=== PATIENT | female | born 1950 | race Caucasian/White ===

== ENCOUNTER → 2017-12-10 | Outpatient (CLI) | payer MEDICARE, BC ==
[~2017-12-10] MED LIST: ALBUTEROL2.5 MG/3 M INH; CLARITHROMYCIN500 MG PO; CLOPIDOGREL75 MG PO; CYCLOBENZAPRINE10 MG PO; DEXA; HYDROCHLOROTHIA50 MG PO; METOPROLOL TAR100 MG PO; PLAVIX75 MG PO; QNASL8.7 GM INH; TESSALON PERLE100 MG PO; Z.0.ALLEGRA60 MG PO; Z.0.DEXILANT60 MG; Z.0.PRINIVIL20 MG; Z.0.SINGULAIR10 MG PO; Z.0.TOPROL XL100 MG; Z.0.ZOLOFT25 MG; ZOLOFT50 MG PO
--- NOTE | 2017-12-10 14:25 | Diagnostic Imaging Report ---
EXAMINATION: PA and lateral views of the chest. COMPARISON: Chest 2 views 07/07/2012 CLINICAL HISTORY: Shortness of breath, tiredness, weakness DISCUSSION: Lines/tubes: None. Lungs: The lungs are well inflated. Stable 4-5 mm calcified granuloma in the left upper lobe. There is no evidence of pneumonia or pulmonary edema. Pleura: There is no pleural effusion or pneumothorax. Heart and mediastinum: Cardiomediastinal silhouette is unremarkable. Pulmonary vasculature is normal. Bones and soft tissues: No acute bony abnormalities. Degenerative changes in the thoracic spine IMPRESSION: No acute cardiopulmonary abnormalities. Signed by: Dr. Gary Caraballo M.D. on 12/10/2017 2:22 PM
== END ==
LOC: RAD 13:13
PROVIDERS: ATTEND Family Medicine
DX: R06.02 Shortness of breath (principal)
CPT/HCPCS: 71046

== ENCOUNTER 2018-10-16 19:13 | Emergency (ER) | payer MEDICARE, BC ==
[~2018-10-16] VITALS: Ht 172.7 cm; Wt 113.4 kg
[2018-10-16] MEDS ORDERED: TRAMADOL HCL 50 MG TAB PO ONE (19:15)
--- OUTSIDE RECORDS SUMMARY | 2018-10-16 19:17 | XMS REPORT ---
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 Allergies, Adverse Reactions, Alerts This patient has no known allergies or adverse reactions. Medications This patient has no known medications. Results Test Description Test Time Test Comments Text Results Atomic Results Result Comments CHEST 2 VIEWS 2017-12-10 14:20:00 [place] [id number] Patient Name: CHAVA LUDWIG MR #: [id number] : 1950 Age/Sex: 67/F Req #: [id number] Adm Physician: Ordered by: RAJENDRA BOO MD Report #: [id number] Location: [facility] Room/Bed: Procedure: [id number] DX/CHEST 2 VIEWS Exam Date: 12/10/17 Exam Time: 1355 REPORT STATUS: Signed EXAMINATION: PA and lateral views of the chest. COMPARISON: Chest 2 views 07/07/2012 CLINICAL HISTORY: Shortness of breath, tiredness, weakness DISCUSSION: Lines/tubes: None. Lungs: The lungs are well inflated. Stable 4-5 mm calcified granuloma in the left upper lobe. There is no evidence of pneumonia or pulmonary edema. Pleura: There is no pleural effusion or pneumothorax. Heart and mediastinum: Cardiomediastinal silhouette is unremarkable. Pulmonary vasculature is normal. Bones and soft tissues: No acute bony abnormalities. Degenerative changes in the thoracic spine IMPRESSION: No acute cardiopulmonary abnormalities. Signed by: Dr. Melissa Johnson M.D. on 12/10/2017 2:22 PM Dictated By: MELISSA JOHNSON MD [id number] Transcribed By: PONCHO on 12/10/17 142 COPY TO: RAJENDRA BOO MD
--- OUTSIDE RECORDS SUMMARY | 2018-10-16 19:17 | XMS REPORT | Clinical Summary ---
Author Author [facility] Address Unknown Phone Unavailable Care Team Providers Care Helicopter Pilot Name Role Phone Bharat Meza MD PCP Allergies Comments Active Allergy Reactions Severity Noted Date Out of it Zolpidem Other (See 10/07/2016 Comments) Hallucinations Codeine Other (See 10/07/2016 Comments) Levofloxacin Swelling 10/07/2016 Hallucinations Morphine Other (See 10/07/2016 Comments) Medications End Date Status Medication Sig Dispensed Refills Start Date Active spironolactone 0 (ALDACTONE) 50 MG tablet 7 Active sertraline (ZOLOFT) 50 MG 0 tablet 7 Active montelukast (SINGULAIR) 0 10 mg tablet 7 Active CLOPIDOGREL BISULFATE Take by 0 (PLAVIX ORAL) mouth. Active LOSARTAN POTASSIUM Take by 0 (LOSARTAN ORAL) mouth. Active Problems No known active problems Social History Date Tobacco Use Types Packs/Day Years Used Never Smoker Smokeless Tobacco: Never Used Alcohol Use Drinks/Week oz/Week Comments No Sex Assigned at Date Recorded Not on file Industry Job Start Date Occupation Not on file Not on file Not on file Travel End Travel History Travel Start No recent travel history available. Last Filed Vital Signs Not on file Plan of Treatment Health Maintenance Due Date Last Done Comments BREAST CANCER SCREENING 2001 COLONOSCOPY SCREENING 2001 SHINGLES VACCINES (#1) 2001 65+ PNEUMOCOCCAL VACCINE 01/05/2016 (1 of 2 - PCV13) INFLUENZA VACCINE 11/03/2018 Results Not on fileafter 10/15/2017 Insurance Type Payer Benefit Subscriber ID Effective Phone Address Plan / Dates Group Medicare MEDICARE MEDICARE xxxxxxxxxx 2016- JUSTIN, PART A AND Present [place] PPO BCBS BCBS xxxxxxxxxxxxxxx 2016- CHOICE Present PPO/KARMEN VELOZ PPO Advance Directives Patient has advance care planning documents on file. For more information, pierre gaytan contact: Justin Zamora [address] [place] [address]
--- NOTE | 2018-10-16 20:57 | Diagnostic Imaging Report ---
Right rib radiographs 7 views with PA chest radiograph HISTORY: Pain. COMPARISON: Chest radiograph 12/10/2017. FINDINGS: RIGHT RIBS: No displaced fracture. The osseous alignment is within normal limits. The joint spaces are well-maintained. The soft tissues appear unremarkable. Degenerative changes in the spine. Tendon anchor in the right humeral head. Aortic arch calcifications. Stable calcified granuloma in the left upper lobe. IMPRESSION: No displaced rib fractures. Degenerative changes in the spine. Signed by: Caesar Kevin DO on 10/16/2018 8:54 PM
--- NOTE | 2018-10-16 20:59 | Diagnostic Imaging Report ---
KNEE RIGHT THREE VIEWS HISTORY: Pain. COMPARISON: None available. FINDINGS: Bones: No acute displaced fracture. Osseous alignment is within normal limits. Joints: Tricompartmental joint space narrowing and osteophytes. Soft tissues: Mild soft tissue swelling about the knee. IMPRESSION: No acute radiographic osseous abnormality. Mild soft tissue swelling about the knee. Advanced degenerative changes in the knee. Signed by: Caesar Keivn DO on 10/16/2018 8:56 PM
[2018-10-16 21:11] VITALS: BP 133/64
== END 2018-10-16 21:16 | disposition home or self-care (01) ==
LOC: ER 19:13
DX: S80.01XA Contusion of right knee, initial encounter (principal); W01.0XXA Fall on same level from slipping, tripping and stumbling without subsequent striking against object, initial encounter; Y92.008 Other place in unspecified non-institutional (private) residence as the place of occurrence of the external cause; Z98.84 Bariatric surgery status
CPT/HCPCS: 71101; 99283

== ENCOUNTER → 2018-11-07 | Outpatient (CLI) | payer MEDICARE, BC ==
--- NOTE | 2018-11-07 15:43 | Diagnostic Imaging Report ---
EXAMINATION: CHEST 2 VIEWS INDICATION: Shortness of breath COMPARISON: Rib and chest radiograph of 10/16/2018, chest radiograph of 12/10/2017 FINDINGS: LINES/TUBES:None LUNGS:The lungs are well-inflated. No focal consolidation or pulmonary edema. Left upper lung calcified granuloma. PLEURA:No pleural effusion or pneumothorax. MEDIASTINUM:The cardiomediastinal silhouette appears normal in size and shape. Atherosclerotic calcifications of the thoracic aorta. BONES/SOFT TISSUES:No acute osseous injury. Degenerative changes of the visualized spine. ABDOMEN:No free air under the diaphragm. IMPRESSION: No focal pneumonia or pulmonary edema. Signed by: Dianna Simons MD on 11/07/2018 3:39 PM
== END ==
LOC: RAD 14:49
PROVIDERS: ATTEND Family Medicine
DX: R06.02 Shortness of breath (principal)
CPT/HCPCS: 71046

== ENCOUNTER → 2019-03-10 | Outpatient (CLI) | payer MEDICARE, BC ==
--- NOTE | 2019-03-10 13:58 | Diagnostic Imaging Report ---
Chest, PA and lateral. History: Bronchitis. Comparison: 11/07/2018. Discussion: The cardiomediastinal silhouette and pulmonary vasculature are within normal limits. A calcified granuloma is again identified in the left upper lobe The lungs are clear without evidence of consolidation or effusion. There are no acute osseous abnormalities. IMPRESSION: No radiographic evidence of acute cardiopulmonary abnormality. Signed by: Omero Huber MD on 03/10/2019 1:54 PM
== END ==
LOC: RAD 12:36
PROVIDERS: ATTEND Family Medicine
DX: J40 Bronchitis, not specified as acute or chronic (principal)
CPT/HCPCS: 71046

== ENCOUNTER → 2020-01-09 | Outpatient (CLI) | payer MEDICARE, BC ==
--- NOTE | 2020-01-09 11:12 | Diagnostic Imaging Report ---
EXAM: US ABDOMEN COMPLETE DATE: 01/09/2020 10:33 AM INDICATION: Abdominal pain COMPARISON: None TECHNIQUE: Transverse and longitudinal loja scale and color doppler sonographic images of the upper abdomen were obtained. FINDINGS: LIVER 16.5 cm in the right midclavicular line. Normal echogenicity of the liver with normal contour, no masses. SPLEEN 10.2 cm in maximum diameter. Normal echogenicity, no masses. GALLBLADDER Status post cholecystectomy. BILE DUCTS No intra nor extra-hepatic biliary dilation. Common bile duct measures 3mm PANCREAS: Visualized portions are normal. RIGHT KIDNEY: 9.0 cm Echogenicity: Normal Collecting System: No hydronephrosis Stones: None Cyst/Mass: None LEFT KIDNEY: 9.5 cm Echogenicity: Normal Collecting System: No hydronephrosis Stones: None Cyst/Mass: None VESSELS: Aorta: Visualized portions are within normal size limits Inferior Vena Cava: Visualized portions are normal Main Portal Vein: 0.8 cm, normal size with hepatopetal flow. FREE FLUID: None IMPRESSION: Unremarkable abdominal ultrasound. Signed by: Dianna Simons MD on 01/09/2020 11:09 AM
== END ==
LOC: US 10:01
PROVIDERS: ATTEND Family Medicine
DX: R14.0 Abdominal distension (gaseous) (principal); D73.4 Cyst of spleen
CPT/HCPCS: 76700

== ENCOUNTER → 2020-10-23 | Outpatient (CLI) | payer MEDICARE | LOC: MAMMO 13:08 | PROVIDERS: ATTEND Family Medicine | DX: Z12.31 Encounter for screening mammogram for malignant neoplasm of breast (principal) | CPT/HCPCS: 77067 ==

== ENCOUNTER 2020-11-14 12:09 | Emergency (ER) | payer MEDICARE, BC ==
[~2020-11-14] VITALS: Ht 167.6 cm; Wt 117.9 kg
[2020-11-14] MEDS ORDERED: ONDANSETRON HCL INJ 2MG/ML 2ML 2 MG/ML VIAL IV STA (13:03)
[2020-11-14] MEDS ORDERED: SODIUM CHLORIDE 0.9% 1000ML 1,000 ML IV SCH (13:15)
[2020-11-14] MEDS ORDERED: ONDANSETRON HCL INJ 2MG/ML 2ML 8 MG in SODIUM CHLORIDE 0.9% 50ML 50 ML IV ONE (13:30)
[2020-11-14] MEDS ORDERED: KETOROLAC TROMETHAMINE 30 MG/ML VIAL IV STA (13:44)
[2020-11-14] MEDS ORDERED: ONDANSETRON HCL INJ 2MG/ML 2ML 2 MG/ML VIAL ONE (13:52)
[2020-11-14] MEDS ORDERED: KETOROLAC TROMETHAMINE 30 MG/ML VIAL ONE (13:52)
[2020-11-14] MEDS ORDERED: SODIUM CHLORIDE 0.9% 1000ML 1,000 ML ONE (13:52)
[2020-11-14] MEDS ORDERED: LEVSIN-SL0.125 MG SL (16:46)
== END 2020-11-14 17:07 | disposition home or self-care (01) ==
LOC: FSED 12:53
DX: N39.0 Urinary tract infection, site not specified (principal); K59.00 Constipation, unspecified; I10 Essential (primary) hypertension; I65.29 Occlusion and stenosis of unspecified carotid artery
CPT/HCPCS: 74177; 80053; 81003; 82553; 84484; 85025; 99284; J1885; J2405; J7030

== ENCOUNTER → 2020-12-03 | Day surgery (SDC) | payer MEDICARE, BC ==
[2020-11-29 14:49] LABS: BASOPHILS # (AUTO) 0.1 (0.0-0.1); BASOPHILS % 0.7 % (0.0-1.0); EOSINOPHILS # (AUTO) 0.2 (0.0-0.4); EOSINOPHILS % 2.4 % (0.0-6.0); HEMATOCRIT 45.9 % (34.2-44.1); HEMOGLOBIN 14.6 g/dL (12.0-16.0); LYMPHOCYTES % 23.1 % (18.0-39.1); MEAN CORPUSCULAR HEMOGLOBIN 27.8 pg (28-32); MEAN CORPUSCULAR HGB CONC 31.8 g/dL (31-35); MEAN CORPUSCULAR VOLUME 87.4 fL (81-99); MONOCYTES # (AUTO) 0.6 (0.2-0.8); MONOCYTES % 6.5 % (4.4-11.3); NEUTROPHILS # (AUTO) 5.8 (2.1-6.9); NEUTROPHILS % 67.1 % (38.7-80.0); PLATELET COUNT 302 x10e3/uL (140-360); RED BLOOD COUNT 5.25 x10e6/uL (3.6-5.1); RED CELL DISTRIBUTION WIDTH 14.9 % (11.7-14.4)
[~2020-12-03] MED LIST changes: +BENICAR5 MG PO; +CARBINOXAMINE MA4 MG PO; +FLONASE ALLERG9.9 ML INH; +HYOSCYAMINE SULFATE 0.5 MG/ML INJ ONE; +LEVSIN-SL0.125 MG SL; +MUCINEX600 MG PO; +PROTONIX20 MG PO; +SPIRONOLACTONE25 MG PO; +VITAMIN B122500 MCG IM; +VITAMIN D350 MCG PO
[2020-12-03 14:11] VITALS: BP 136/67
== END | disposition home or self-care (01) ==
LOC: OR 10:25
PROVIDERS: ATTEND Internal Medicine Gastroenterology
DX: K20.90 Esophagitis, unspecified without bleeding (principal); K29.60 Other gastritis without bleeding; K95.89 Other complications of other bariatric procedure; Z98.84 Bariatric surgery status; Z98.0 Intestinal bypass and anastomosis status; K63.5 Polyp of colon; K57.30 Diverticulosis of large intestine without perforation or abscess without bleeding; K64.8 Other hemorrhoids; Z80.0 Family history of malignant neoplasm of digestive organs; E11.9 Type 2 diabetes mellitus without complications; D12.5 Benign neoplasm of sigmoid colon; Z86.010 Personal history of colon polyps; I10 Essential (primary) hypertension; Z68.41 Body mass index [BMI] 40.0-44.9, adult; Z88.1 Allergy status to other antibiotic agents; Z88.5 Allergy status to narcotic agent; Z88.8 Allergy status to other drugs, medicaments and biological substances; Z01.810 Encounter for preprocedural cardiovascular examination; Z01.812 Encounter for preprocedural laboratory examination; Z20.822 Contact with and (suspected) exposure to COVID-19
CPT/HCPCS: 36415 ×2; 43239; 43245; 45380; 45385; 82948; 85025; 88305; 88312; 93005; J1980; U0002

== ENCOUNTER 2022-06-08 11:22 | Emergency (ER) | payer MEDICARE, BC ==
[~2022-06-08] VITALS: Ht 167.6 cm; Wt 117.9 kg
[~2022-06-08 11:22] MED LIST changes: -HYOSCYAMINE SULFATE 0.5 MG/ML INJ ONE
[2022-06-08] MEDS ORDERED: FUROSEMIDE INJ 10 MG/ML 4 ML VIAL IV ONE (11:45)
[2022-06-08 11:59] LABS: BASOPHILS # (AUTO) 0.1 (0.0-0.1); BASOPHILS % 0.9 % (0.0-1.0); EOSINOPHILS # (AUTO) 0.2 (0.0-0.4); EOSINOPHILS % 3.3 % (0.0-6.0); HEMATOCRIT 43.9 % (34.2-44.1); HEMOGLOBIN 13.9 g/dL (12.0-16.0); LYMPHOCYTES # (AUTO) 1.7 (1.0-3.2); LYMPHOCYTES % 25.3 % (18.0-39.1); MEAN CORPUSCULAR HEMOGLOBIN 27.6 pg (28-32); MEAN CORPUSCULAR HGB CONC 31.7 g/dL (31-35); MEAN CORPUSCULAR VOLUME 87.3 fL (81-99); MONOCYTES # (AUTO) 0.5 (0.2-0.8); MONOCYTES % 6.9 % (4.4-11.3); NEUTROPHILS # (AUTO) 4.2 (2.1-6.9); NEUTROPHILS % 63.4 % (38.7-80.0); PLATELET COUNT 305 x10e3/uL (140-360); RED BLOOD COUNT 5.03 x10e6/uL (3.6-5.1); RED CELL DISTRIBUTION WIDTH 13.4 % (11.7-14.4)
[2022-06-08] MEDS ORDERED: ALBUTEROL/IPRATROPIUM 3 ML NEB NEB ONE (12:00)
[2022-06-08] MEDS ORDERED: METHYLPREDNISOLONE SOD SUCC 125 MG/2ML VIAL IV ONE (12:00)
[2022-06-08 12:11] LABS: ALBUMIN 3.3 g/dL (3.5-5.0); ALBUMIN/GLOBULIN RATIO 0.9 (0.8-2.0); ANION GAP 12.9 mmol/L (8-16); CALCIUM 9.5 mg/dL (8.4-10.2); CREATININE, SERUM 0.74 mg/dL (0.57-1.11); POTASSIUM 3.9 mmol/L (3.5-5.1)
[2022-06-08] MEDS ORDERED: ALBUTEROL2.5 MG/0.5 PO (13:36)
[2022-06-08] MEDS ORDERED: PREDNISONE50 MG PO (13:36)
[2022-06-08] MEDS ORDERED: BENZONATATE200 MG PO (13:36)
== END 2022-06-08 14:43 | disposition home or self-care (01) ==
LOC: ER 11:30
DX: R05.9 Cough, unspecified (principal); J40 Bronchitis, not specified as acute or chronic; I10 Essential (primary) hypertension; Z20.822 Contact with and (suspected) exposure to COVID-19; Z96.652 Presence of left artificial knee joint; Z98.84 Bariatric surgery status
CPT/HCPCS: 0223U; 36415; 71045; 80053; 83880; 84484; 85025; 93005; 94640; 94799; 99284; J2930

== ENCOUNTER → 2022-06-16 | Outpatient (CLI) | payer MEDICARE, BC ==
[~2022-06-16] MED LIST changes: +ALBUTEROL2.5 MG/0.5 PO; +BENZONATATE200 MG PO; +PREDNISONE50 MG PO
== END ==
LOC: RAD 12:00
PROVIDERS: ATTEND Family Medicine
DX: J40 Bronchitis, not specified as acute or chronic (principal)
CPT/HCPCS: 71046

== ENCOUNTER 2023-02-02 09:35 | Emergency (ER) | payer MEDICARE, BC ==
[~2023-02-02] VITALS: Ht 167.6 cm; Wt 117.9 kg
[2023-02-02 09:40] VITALS: O2SAT 97
[2023-02-02] MEDS ORDERED: OXYMETAZOLINE HCL 0.05% NAS 1 SPRAY BTL ONE (09:45)
== END 2023-02-02 11:04 | disposition home or self-care (01) ==
LOC: ER 09:40
DX: R04.0 Epistaxis (principal); I10 Essential (primary) hypertension; J45.909 Unspecified asthma, uncomplicated; Z98.84 Bariatric surgery status
CPT/HCPCS: 99284

== ENCOUNTER → 2024-10-04 | Day surgery (SDC) | payer MEDICARE, BC ==
[2024-09-25 12:02] LABS: BASOPHILS % 0.6 % (0.0-1.0); EOSINOPHILS % 4.2 % (0.0-6.0); LYMPHOCYTES % 23.6 % (18.0-39.1); MONOCYTES % 6.6 % (4.4-11.3); NEUTROPHILS % 64.9 % (38.7-80.0); RED CELL DISTRIBUTION WIDTH 14.6 % (11.7-14.4)
[~2024-10-04] MED LIST changes: +BIOTIN800 MCG; +EPHEDRINE SULFATE INJ 50 MG/ML VIAL ONE; +FENTANYL CITRATE/PF 100MCG/2 ML INJ ONE; +GLUCAGON FOR INJ 1 MG VIAL ONE; +HYOSCYAMINE SULFATE 0.5 MG/ML INJ ONE; +LIDOCAINE HCL 2% LOCAL INJ 5 ML SDV VIAL INJ ONE; +METOLAZONE5 MG PO; +ONDANSETRON HCL INJ 2MG/ML 2ML 2 MG/ML VIAL ONE; +PROPOFOL IV EMULSION 10 MG/ML 20 ML VIAL ONE; +PROPOFOL IV EMULSION 50 ML IV ONE
[2024-10-04] MEDS: LACTATED RINGER'S 1,000 ML ONE (07:06)
[2024-10-04 09:24] VITALS: TEMP 97.8
[2024-10-04] MEDS: ONDANSETRON HCL INJ 2MG/ML 2ML 2 MG/ML VIAL IV ONE ×2 (09:39→09:54)
[2024-10-04 09:52] VITALS: BP 119/43; PULSE 67; RESP 18; O2SAT 97
== END | disposition home or self-care (01) ==
LOC: OR 06:24
PROVIDERS: ATTEND Internal Medicine Gastroenterology
DX: Z12.11 Encounter for screening for malignant neoplasm of colon (principal); D12.0 Benign neoplasm of cecum; K29.50 Unspecified chronic gastritis without bleeding; K20.90 Esophagitis, unspecified without bleeding; K21.9 Gastro-esophageal reflux disease without esophagitis; K57.30 Diverticulosis of large intestine without perforation or abscess without bleeding; D64.9 Anemia, unspecified; I11.0 Hypertensive heart disease with heart failure; I50.9 Heart failure, unspecified; E66.01 Morbid (severe) obesity due to excess calories; M54.2 Cervicalgia; M54.9 Dorsalgia, unspecified; Z88.6 Allergy status to analgesic agent; Z88.1 Allergy status to other antibiotic agents; Z88.8 Allergy status to other drugs, medicaments and biological substances; Z01.810 Encounter for preprocedural cardiovascular examination; Z01.812 Encounter for preprocedural laboratory examination; Z79.02 Long term (current) use of antithrombotics/antiplatelets; Z79.899 Other long term (current) drug therapy; Z80.0 Family history of malignant neoplasm of digestive organs
CPT/HCPCS: 36415; 43239; 43450; 45380; 85025; 88305; 88342; 93005; C1726; J1610; J1980; J2003; J2405; J2470; J2704 ×2; J3010; J7121; 45378; 45385